=== PATIENT | male | born 1990 | race Caucasian/White ===

== ENCOUNTER 2021-09-24 10:00 | Emergency (ER) | payer OTHER ==
[~2021-09-24] VITALS: Ht 180.3 cm; Wt 91.0 kg
--- NOTE | 2021-09-24 11:09 | RAD ---
EXAMINATION: XR HAND_RIGHT 3 VIEWS CLINICAL HISTORY: Injury. TECHNIQUE: XR HAND_RIGHT 3 VIEWS Number of Images/Views: 3 COMPARISON: None FINDINGS: Joint spaces and alignment maintained. No acute fracture. Mild soft tissue swelling along the dorsal and. IMPRESSION: No acute osseous abnormality. Electronically signed by: Romero John DO (09/24/2021 11:07 AM) [id number]
--- NOTE | 2021-09-24 11:18 | PHYS DOC ---
General Adult EDM: Chief Complaint: HAND PROBLEM HPI: HPI: Patient is a 31 year old male who presents with right hand injury. Patient rates his pain as moderate and nonradiating to the knuckles of his right hand. He states he was playing pool with a friend last night. Patient states he had "a few too many drinks," and when he lost the game a pool, he punched the wall "a little harder than he thought." Patient has not injured the hand previously or had any surgeries on the hand. He denies any other injury or pain, paresthesias, lacerations. (JOLYNN PERALTA) Review of Systems: Review of Systems: ROS negative or noncontributory except as mentioned in HPI. (JOLYNN PERATLA) Physical Exam: PE: Constitutional: Well developed, well nourished, no acute distress, non-toxic appearance. Cardiovascular: Heart rate regular rhythm, no murmur. Lungs & Thorax: Bilateral breath sounds clear to auscultation. Skin: Warm, dry, no erythema, no rash, no abrasions, no lacerations. Extremities: Right hand with swelling over the third and fourth MCP joints with tenderness to palpation, no anatomical snuffbox tenderness, control room supervisor strength 5/5 bilaterally, active range of motion opposition/flexion/extension intact, radial pulses symmetrical. Extremities otherwise no tenderness, no cyanosis, no clubbing, ROM intact, no edema, no deformity. (JOLYNN PERALTA) Radiology/Procedures: Radiology/Procedures: PROCEDURE: HAND RIGHT 3V EXAMINATION: XR HAND_RIGHT 3 VIEWS CLINICAL HISTORY: Injury. TECHNIQUE: XR HAND_RIGHT 3 VIEWS Number of Images/Views: 3 COMPARISON: None FINDINGS: Joint spaces and alignment maintained. No acute fracture. Mild soft tissue swelling along the dorsal and. IMPRESSION: No acute osseous abnormality. Electronically signed by: Romero John DO (09/24/2021 11:07 AM) [id number] (JOLYNN PERALTA) Heart Score: C/O Chest Pain: No (JOLYNN PERALTA) Course & Med Decision Making: Course & Med Decision Making Pertinent Labs and Imaging studies reviewed. (See chart for details) Patient is otherwise healthy 31-year-old male who presents with isolated injury to his right hand after punching a wall last night. Is concerned that it may be broken secondary to swelling and pain. X-ray images obtained. No fracture or dislocations are seen on plain films. Patient provided with ibuprofen, ice pack and Aakash bandage. He is instructed to follow with his PCP, a nd should return to the emergency department for any worsening symptoms. Patient understands and is agreeable to discharge plan. (JOLYNN PERALTA) Dragon Disclaimer: Dragon Disclaimer: This electronic medical record was generated, in whole or in part, using a voice recognition dictation system. (JOLYNN PERALTA) Attending Co-Sign The patient was seen and interviewed as well as examined at the bedside. The chart was reviewed. The case was discussed. Agree with the plan of care. (OCTAVIA ALBERTO DO) Departure Departure: Impression: Primary Impression: Contusion of right hand, initial encounter Disposition: HOME / SELF CARE / HOMELESS Condition: STABLE Referrals: CHAVA GALINDO (PCP) Patient Instructions: Anger Management, Contusion, [id number] Additional Instructions: EMERGENCY DEPARTMENT GENERAL DISCHARGE INSTRUCTIONS THANK YOU for coming to [facility] Emergency Department (ED) today and trusting us with your care. We trust that you had a positive experience in our Emergency Department. If you wish to speak to the department Management you can contact the export traffic department manager at . YOUR FOLLOW UP INSTRUCTIONS ARE FOLLOWS: - Do you have a private doctor? If you do not have a private doctor, please ask for a resource list of physicians or clinics that may be able to assist you with follow up care. - The Emergency Physician has interpreted your x-rays. The X-ray specialist also reviewed them. If there is a change in the findings you will be notified in 48 hours when at all possible. - A lab test or lab culture may have been done, your results will be reviewed and you will be notified if you need a change in treatment. ADDITIONAL INSTRUCTIONS AND INFORMATION - Your care today has been supervised by a physician who is specially trained in emergency care. Many problems require more than one evaluation for a complete diagnosis and treatment. We recommend that you schedule your follow up appointment as recommended to ensure complete treatment of your illness or injury. If you are unable to obtain follow up care and continue to have a problem, or if your condition worsens we recommend that you return to the ED. - We are not able to safely determine your condition over the phone nor are we able to give sound medical advice over the phone. For these safety reasons, if you call for medical advice we will ask you to come to the ED for further evaluation - If you have any questions regarding these discharge instructions please call the ED at . SAFETY INFORMATION - In the interest of safety, wellness, and injury prevention; we encourage you to wear your seatbelt, if you smoke; quit smoking, and we encourage your family to use protective helmet for bicycling and other sporting events that present an increased risk for head injury. IF YOUR SYMPTOMS WORSEN OR NEW SYMPTOMS DEVELOP, OR YOU HAVE CONCERNS ABOUT YOUR CONDITION; OR IF YOUR CONDITION WORSENS WHILE YOU ARE WAITING FOR YOUR FOLLOW UP APPOINTMENT; EITHER CONTACT YOUR PRIMARY CARE DOCTOR, THE PHYSICIAN WHOSE NAME AND NUMBER YOU WERE GIVEN, OR RETURN TO THE ED IMMEDIATELY. JOLYNN PERALTA Sep 24, 2021 11:18 OCTAVIA ALBERTO DO Sep 25, 2021 22:18
[2021-09-24 11:25] VITALS: BP 132/77
[2021-09-24] MEDS ORDERED: IBUPROFEN 600 MG TABLET. PO ONE (11:30)
== END 2021-09-24 11:43 | disposition home or self-care (01) ==
LOC: ER 10:16
DX: S60.221A Contusion of right hand, initial encounter (principal); W22.01XA Walked into wall, initial encounter; Y93.89 Activity, other specified; Y92.89 Other specified places as the place of occurrence of the external cause; Y99.8 Other external cause status
CPT/HCPCS: 73130; 99283